=== PATIENT | female | born 1970 | race Caucasian/White ===

== ENCOUNTER 2017-10-22 18:47 | Emergency (ER) | payer OTHER ==
[2017-10-22 19:08] VITALS: RESP 16; TEMP 98.8; O2SAT 100
--- NOTE | 2017-10-22 19:59 | ED PDOC ---
HPI: Abdomen Chief Complaint (Nursing): Abdominal Pain Chief Complaint (Provider): Left abdominal pain History Per: Patient History/Exam Limitations: no limitations Onset/Duration Of Symptoms: Days Outside of [place] travel?: No Current Symptoms Are (Timing): Still Present Pain Scale Rating Of: 8 Location Of Pain/Discomfort: LUQ, LLQ Quality Of Discomfort: "Pain" Associated Symptoms: Nausea (once in the last 3 days), Back Pain, Constipation. denies: Fever, Chills, Vomiting, Diarrhea Additional Complaint(s): 47 y/o F with PMHx significant for Breast cyst presents to ED complaining of left sided abdominal pain for 4 days. Patient states that her pain was initially located in her LLQ, but has been moving up to her LUQ, and sometimes she feels the same pain in her left lower back. Pain intensity has been ranging from 3-4/10 to 8-9/10, aggravates when lying down, improves with sitting position, and OTC Motrin 2 tablets (400 mg ). Patient states that for the last week she has moved her bowels once, 3 days ago, and she used to move her bowels every day. Passing gasses. Denies fevers, chills, N/V, hematuria, urinary symptoms, blood in stools, or another similar episode episode in the past. Reports nausea once 3 days ago, but denies any nausea or vomiting episode at this time. Has been able to eat, but with poor appetite. PMD: in [place] PMhx: breast cyst Shx: Tonsillectomy, one Allergies: NKDA LMP : 1 week ago Past Medical History Vital Signs: Last Vital Signs Temp 98.8 F 10/22/17 19:05 Pulse 103 H 10/22/17 19:05 Resp 16 10/22/17 19:05 BP 121/67 10/22/17 19:05 Pulse Ox 100 10/22/17 21:21 - Medical History Other PMH: Breast cyst - Surgical History Surgical History: Tonsillectomy, - Family History Family History: States: No Known Family Hx - Living Arrangements Living Arrangements: With Family - Social History Current smoker - smoking cessation education provided: No Ex-Smoker (has not smoked in the last 12 months): No - Home Medications Home Medications: Ambulatory Orders Medication Instructions Recorded Ibuprofen [Motrin Tab] 600 mg PO TID PRN #15 tab 10/22/17 Polyethylene Glycol 3350 [Miralax] 17 g PO BID #6 packet 10/22/17 - Allergies Allergies/Adverse Reactions: Allergies Allergy/AdvReac Type Severity Reaction Status Date / Time No Known Allergies Allergy Verified 10/22/17 19:05 Review of Systems ROS Statement: Except As Marked, All Systems Reviewed And Found Negative (as perPI) Physical Exam - Reviewed Nursing Documentation Reviewed: Yes Vital Signs Reviewed: Yes - Physical Exam Appears: Positive for: Non-toxic, No Acute Distress, Uncomfortable (because the pain) Head Exam: Positive for: ATRAUMATIC, NORMOCEPHALIC Skin: Positive for: Normal Color Eye Exam: Positive for: Normal appearance Cardiovascular/Chest: Positive for: Regular Rate, Rhythm. Negative for: Gallop , Friction Rub Respiratory: Positive for: Normal Breath Sounds. Negative for: Decreased Breath Sounds, Accessory Muscle Use, Crackles, Rales, Rhonchi, Wheezing, Respiratory Distress Gastrointestinal/Abdominal: Positive for: Bowel Sounds, Soft, Tenderness (to palpation of left upper/lower abdomen). Negative for: Distended, Guarding, Rebound Back: Positive for: Other (tender to palpation of left lower back). Negative for: L CVA Tenderness, R CVA Tenderness Extremity: Negative for: Pedal Edema, Calf Tenderness Neurologic/Psych: Positive for: Alert, Oriented - Laboratory Results Result Diagrams: 10/22/17 20:08 10/22/17 20:08 - ECG O2 Sat by Pulse Oximetry: 100 Medical Decision Making Medical Decision Making: Left Abdominal pain -Urinalysis -CBC, BMP, Lipase -Toradol 15 mg IV once -urine dip showed trace of blood -urine test negative -re-assess -case discussed with Dr. De León Re-evaluation -UA showed small blood, with 4 RBC -CBC showed Hypochromic anemia, but patient reports a recent history of heavy menses, being managed by her PMD, who recommended [facility] referral, pending [facility] eval. Denies vaginal bleeding at this time. -BMP: unremarkable -lipase normal -will send for Abd & Pelvis CT w/o contrast -pain improved from 9/10 to 3/10 after Toradol [address] scan reported as : IMPRESSION: 1. Enlarged uterus with lobulated contour, likely related to underlying uterine fibroids. Pelvic ultrasound can be performed for complete evaluation. 2. Left ovary enlarged relative to right. Cannot exclude underlying cyst/ abnormality. Can also be evaluated with pelvic ultrasound. 3. Large amount of retained stool in rectosigmoid. Correlate for constipation/ fecal impaction -stable for discharge home with recommended f/u as outpatient with PMD and [facility] specialist. Disposition - Clinical Impression Clinical Impression: Abdominal discomfort Discussed With DrFelix: Kiara De León - Disposition Referrals: [facility] [Outside] Disposition: Routine/Home Disposition Time: 23:10 Condition: GOOD Prescriptions: Ibuprofen [Motrin Tab] 600 mg PO TID PRN #15 tab PRN Reason: Pain, Severe (8-10) Polyethylene Glycol 3350 [Miralax] 17 g PO BID #6 packet Instructions: Constipation in Adults, High Fiber Diet, Acute Abdomen (Belly Pain), Adult (DC) Forms: [facility] ([place])
[2017-10-22 20:12] LABS: BASO # 0.1 K/uL (0.0-0.2); BASO % 1.5 % (0.0-2.0); EOS # 0.1 K/uL (0.0-0.7); EOS % 1.6 % (0.0-4.0); HEMOGLOBIN 8.8 g/dL (12.0-16.0); LYMPH # 2.9 K/uL (1.0-4.3); MEAN CELL VOLUME 70.3 fl (81.0-99.0); MEAN CORPUSCULAR HEMOGLOBIN 21.8 pg (27.0-31.0); MEAN PLATELET VOLUME 9.1 fl (7.2-11.7); MONO # 0.7 K/uL (0.0-0.8); MONO % 9.1 % (0.0-10.0); NEUT # 3.6 K/uL (1.8-7.0); NEUT % 48.8 % (50.0-75.0); RBC 4.04 Mil/uL (3.80-5.20); RED CELL DISTRIBUTION WIDTH 16.3 % (11.5-14.5); WHITE BLOOD COUNT 7.4 K/uL (4.8-10.8)
[2017-10-22 20:16] LABS: SQUAMOUS EPITHIAL < 1 /hpf (0-5); URINE BILIRUBIN NEGATIVE (NEGATIVE); URINE BLOOD SMALL (NEGATIVE); URINE CLARITY CLEAR (Clear); URINE COLOR STRAW (YELLOW); URINE GLUCOSE (UA) NEG (Normal); URINE LEUKOCYTE ESTERASE NEG Leu/uL (Negative); URINE PROTEIN NEGATIVE (NEGATIVE); URINE UROBILINOGEN 0.2-1.0 mg/dL (0.2-1.0)
[2017-10-22 20:25] LABS: BLOOD UREA NITROGEN 12 mg/dl (7-17); CALCIUM 9.3 mg/dL (8.4-10.2); GFR AFRICAN-AMERICAN > 60; GFR NON-AFRICAN AMERICAN > 60; LIPASE 88 U/L (23-300)
--- NOTE | 2017-10-22 22:51 | CT ---
EXAM: CT Abdomen and Pelvis Without Intravenous Contrast CLINICAL HISTORY: 47 years old, female; Pain; Abdominal pain; Localized; Left; Prior surgery; Surgery date: 6+ months; Surgery type: -1 TECHNIQUE: Axial computed tomography images of the abdomen and pelvis without intravenous contrast. All CT scans at this facility use one or more dose reduction techniques, viz.: automated exposure control; ma/kV adjustment per patient size (including targeted exams where dose is matched to indication; i.e. head); or iterative reconstruction technique. Coronal and sagittal reformatted images were created and reviewed. COMPARISON: No relevant prior studies available. FINDINGS: Lung bases: Unremarkable. No mass. No consolidation. ABDOMEN: Liver: Hepatic steatosis. Gallbladder and bile ducts: Unremarkable. No calcified stones. No ductal dilation. Pancreas: Unremarkable. No ductal dilation. Spleen: Unremarkable. No splenomegaly. Adrenals: Unremarkable. No mass. Kidneys and ureters: Unremarkable. No obstructing stones. No hydronephrosis. Stomach and bowel: Large amount of retained stool in rectosigmoid. Correlate for constipation/fecal impaction. PELVIS: Appendix: No findings to suggest acute appendicitis. Bladder: Unremarkable. No stones. Reproductive: Enlarged uterus with lobulated contour, likely related to underlying uterine fibroids. Pelvic ultrasound can be performed for complete evaluation. Left ovary enlarged relative to right. Cannot exclude underlying cyst/abnormality. Can also be evaluated with pelvic ultrasound. ABDOMEN and PELVIS: Intraperitoneal space: Unremarkable. No free air. No significant fluid collection. Bones/joints: No acute fracture. No dislocation. Soft tissues: Unremarkable. Vasculature: Unremarkable. No abdominal aortic aneurysm. Lymph nodes: Unremarkable. No enlarged lymph nodes. IMPRESSION: 1. Enlarged uterus with lobulated contour, likely related to underlying uterine fibroids. Pelvic ultrasound can be performed for complete evaluation. 2. Left ovary enlarged relative to right. Cannot exclude underlying cyst/abnormality. Can also be evaluated with pelvic ultrasound. 3. Large amount of retained stool in rectosigmoid. Correlate for constipation/fecal impaction. 4. Remainder of findings as above.
[2017-10-22 23:33] VITALS: BP 126/73; PULSE 76
== END 2017-10-22 23:32 | disposition home or self-care (01) ==
LOC: H.ER 18:47
DX: R10.9 Unspecified abdominal pain (principal); K59.00 Constipation, unspecified; N85.2 Hypertrophy of uterus
CPT/HCPCS: 74176; 80048; 81003; 81025; 83690; 85025; 96374; 99283; J1885